=== PATIENT | female | born 1985 | race Caucasian/White ===

== ENCOUNTER 2017-11-29 13:51 | Emergency (ER) | payer OTHER, SELFPAY ==
[2017-11-29] MEDS ORDERED: traMADol HCl 50 MG TAB ONE (14:50)
--- NOTE | 2017-11-29 17:10 | RAD ---
LEFT KNEE FOUR VIEWS 11/29/17 No fracture, dislocation, or joint effusion was seen. IMPRESSION: No acute findings. POS: HOME
== END 2017-11-29 15:00 | disposition home or self-care (01) ==
LOC: BURERS 13:51
DX: S80.02XA Contusion of left knee, initial encounter (principal); F41.9 Anxiety disorder, unspecified; F31.9 Bipolar disorder, unspecified; F17.210 Nicotine dependence, cigarettes, uncomplicated; V43.52XA Car driver injured in collision with other type car in traffic accident, initial encounter

== ENCOUNTER 2019-07-14 11:27 | Emergency (ER) | payer OTHER | END 2019-07-14 11:54 | disposition home or self-care (01) | LOC: BURERS 11:27 | DX: S29.012A Strain of muscle and tendon of back wall of thorax, initial encounter (principal); R07.89 Other chest pain; F17.210 Nicotine dependence, cigarettes, uncomplicated; X58.XXXA Exposure to other specified factors, initial encounter | CPT/HCPCS: 93005 ==

== ENCOUNTER 2024-02-25 09:46 | Emergency (ER) | payer OTHER, SELFPAY | END 2024-02-25 10:20 | disposition home or self-care (01) | LOC: BURERS 09:46 | DX: N61.0 Mastitis without abscess (principal); F17.210 Nicotine dependence, cigarettes, uncomplicated | CPT/HCPCS: 99283 ==